=== PATIENT | female | born 1995 | race African-American/Black ===

== ENCOUNTER 2018-09-24 19:41 | Emergency (ER) | payer OTHER, SELFPAY ==
[2018-09-24 20:49] LABS: Absolute Lymphocytes (CBC) 0.8 K/uL (0.7-4.9); Absolute Monocytes 0.5 K/uL (0.1-1.3); Absolute Neutrophil 4.8 K/uL (1.8-8.0); Basophils % 0.5 % (0-1.3); Eosinophils % 0.6 % (0-4.4); Hematocrit 41.2 % (36.0-45.0); Lymphocytes % 13.7 % (15.3-44.8); MPV 9.5 fL (7.6-11.3); Monocytes % 7.7 % (3.3-12.3); RBC Red Blood Cell Count 5.49 M/uL (3.86-4.86)
[2018-09-24] MEDS ORDERED: NA CHLORIDE 0.9% 1,000 ML ONE (20:58)
[2018-09-24] MEDS ORDERED: ONDANSETRON 4 MG/2 ML VIAL ONE (20:58)
[2018-09-24 21:07] LABS: ALT/SGPT 24 U/L (12-78); AST/SGOT 26 U/L (15-37); Albumin 3.4 g/dL (3.4-5.0); Alkaline Phosphatase 92 U/L (45-117); BUN Blood Urea Nitrogen 11 mg/dL (7-18); Bicarbonate 28 mmol/L (21-32); Bilirubin Direct 0.2 mg/dL (0-0.2); Bilirubin Total 0.5 mg/dL (0.2-1.0); Glucose Level 86 mg/dL (74-106); Lipase 75 U/L (73-393); Potassium 4.3 mmol/L (3.5-5.1); Protein, Total 7.9 g/dL (6.4-8.2); Sodium Level 142 mmol/L (136-145)
[2018-09-24 21:12] LABS: Urine Blood NEGATIVE (NEG); Urine Glucose NEGATIVE (NEG); Urine Protein 1+ (NEG); Urine Specific Gravity 1.025 (1.005-1.030); Urine pH 5.5 (5.0-7.0)
--- NOTE | 2018-09-24 21:14 | EDPHYS ---
Physician Documentation [facility] Name: Balwinder Nguyen Age: 23 yrs Sex: Female : 1995 Arrival Date: 09/24/2018 Time: 19:42 Bed 23 Private MD: ED Physician Donaldo Stanley HPI: 09/24 20:43 This 23 yrs old Black Female presents to ER via Ambulatory with complaints of Abdominal kb Pain, Nausea/Vomiting. 20:43 The patient presents with abdominal pain in the upper abdomen. Onset: The kb symptoms/episode began/occurred this morning. The symptoms do not radiate. Associated signs and symptoms: Pertinent positives: nausea and vomiting, Pertinent negatives: constipation, diarrhea, fever. The symptoms are described as constant. Modifying factors: The symptoms are alleviated by nothing, the symptoms are aggravated by nothing. Severity of pain: At its worst the pain was moderate in the emergency department the pain is unchanged. The patient has not experienced similar symptoms in the past. The patient has not recently seen a physician. 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 ak1 Historical: - Allergies: 19:49 No Known Allergies; ak1 - Home Meds: 19:49 None [Active]; ak1 - PMHx: 19:49 None; ak1 - PSHx: 19:49 None; ak1 - Immunization history:: Adult Immunizations unknown. - Social history:: Smoking status: Patient/guardian denies using tobacco. - Ebola Screening: : No symptoms or risks identified at this time. ROS: 20:42 Constitutional: Negative for fever, chills, and weight loss, ENT: Negative for injury, kb pain, and discharge, Neck: Negative for injury, pain, and swelling, Cardiovascular: Negative for chest pain, palpitations, and edema, Respiratory: Negative for shortness of breath, cough, wheezing, and pleuritic chest pain, Back: Negative for injury and pain, : Negative for injury, bleeding, discharge, and swelling, MS/Extremity: Negative for injury and deformity, Skin: Negative for injury, rash, and discoloration, Neuro: Negative for headache, weakness, numbness, tingling, and seizure. 20:42 Abdomen/GI: Positive for abdominal pain, nausea and vomiting, Negative for diarrhea, constipation, abdominal cramps, abdominal distension, anorexia. Exam: 20:42 Constitutional: This is a well developed, well nourished patient who is awake, alert, kb and in no acute distress. Head/Face: Normocephalic, atraumatic. ENT: Nares patent. No nasal discharge, no septal abnormalities noted. Tympanic membranes are normal and external auditory canals are clear. Oropharynx with no redness, swelling, or masses, exudates, or evidence of obstruction, uvula midline. Mucous membranes moist. Neck: Trachea midline, no thyromegaly or masses palpated, and no cervical lymphadenopathy. Supple, full range of motion without nuchal rigidity, or vertebral point tenderness. No Meningismus. Chest/axilla: Normal chest wall appearance and motion. Nontender with no deformity. No lesions are appreciated. Cardiovascular: Regular rate and rhythm with a normal S1 and S2. No gallops, murmurs, or rubs. Normal PMI, no JVD. No pulse deficits. Respiratory: Lungs have equal breath sounds bilaterally, clear to auscultation and percussion. No rales, rhonchi or wheezes noted. No increased work of breathing, no retractions or nasal flaring. Skin: Warm, dry with normal turgor. Normal color with no rashes, no lesions, and no evidence of cellulitis. MS/ Extremity: Pulses equal, no cyanosis. Neurovascular intact. Full, normal range of motion. Neuro: Awake and alert, GCS 15, oriented to person, place, time, and situation. Cranial nerves II-XII grossly intact. Motor strength 5/5 in all extremities. Sensory grossly intact. Cerebellar exam normal. Normal gait. 20:42 Abdomen/GI: Inspection: abdomen appears normal, Bowel sounds: normal, in all quadrants, Palpation: soft, in all quadrants, mild abdominal tenderness, in the epigastric area and right upper quadrant, moderate abdominal tenderness, in the left upper quadrant. Vital Signs: 19:49 BP 107 / 75; Pulse 130; Resp 16; Temp 98; Pulse Ox 98% on R/A; Weight 99.79 kg (R); ak1 Height 5 ft. 7 in. (170.18 cm) (R); Pain 8/10; 20:08 BP 106 / 60; Pulse 98; Resp 17; Pulse Ox 99% ; rr5 21:15 BP 125 / 71; Pulse 90; Resp 18; Pulse Ox 99% ; rr5 22:24 BP 131 / 70; Pulse 99; Resp 17; Pulse Ox 99% ; rr5 19:49 Body Mass Index 34.46 (99.79 kg, 170.18 cm) ak1 MDM: 19:54 Patient medically screened. kb 20:42 Data reviewed: vital signs, nurses notes. Data interpreted: Pulse oximetry: on room air kb is 99 %. Interpretation: normal. 21:10 Counseling: I had a detailed discussion with the patient and/or guardian regarding: the kb historical points, exam findings, and any diagnostic results supporting the discharge/admit diagnosis, lab results, the need for outpatient follow up, a family practitioner, to return to the emergency department if symptoms worsen or persist or if there are any questions or concerns that arise at home. 09/24 20:15 Order name: Basic Metabolic Panel; Complete Time: 21:09 kb 09/24 20:15 Order name: CBC with Diff; Complete Time: 20:52 kb 09/24 20:15 Order name: Hepatic Function; Complete Time: 21:09 kb 09/24 20:15 Order name: Lipase; Complete Time: 21:09 kb 09/24 20:44 Order name: Urine Dipstick--Ancillary (enter results); Complete Time: 21:13 ar5 09/24 20:44 Order name: Urine --Ancillary (enter results); Complete Time: 21:13 ar5 09/24 20:15 Order name: IV Saline Lock; Complete Time: 20:56 kb 09/24 20:15 Order name: Labs collected and sent; Complete Time: 20:57 kb Administered Medications: 20:45 Drug: NS 0.9% 1000 ml Route: IV; Rate: 1000 ml; Site: left antecubital; rr5 22:25 Follow up: Response: No adverse reaction; IV Status: Completed infusion; IV Intake: rr5 1000ml 20:47 Drug: Zofran 4 mg Route: IVP; Site: left antecubital; rr5 22:25 Follow up: Response: No adverse reaction rr5 Disposition: 09/24/18 21:13 Discharged to Home. Impression: Upper abdominal pain, unspecified, Nausea with vomiting, unspecified. - Condition is Stable. - Discharge Instructions: Nausea and Vomiting, Adult, [id number], Abdominal Pain, Adult, [id number]. - Prescriptions for Bentyl 20 mg Oral Tablet - take 1 tablet by ORAL route every 6 hours As needed; 20 tablet. Zofran 4 mg Oral Tablet - take 1 tablet by ORAL route every 6 hours As needed; 20 tablet. - Medication Reconciliation Form, Thank You Letter, Antibiotic Education, Prescription Opioid Use form. - Follow up: Emergency Department; When: As needed; Reason: Worsening of condition. Follow up: Private Physician; When: 2 - 3 days; Reason: Recheck today's complaints, Continuance of care, Re-evaluation by your physician. Signatures: Dispatcher [employer] EDMA Cristal Marquis, HOG RINGER-C HOG RINGER-Mar Rob, RN RN ak1 Parker Payne RN RN rr5 Corrections: (The following items were deleted from the chart) 22:25 21:13 09/24/2018 21:13 Discharged to Home. Impression: Upper abdominal pain, rr5 unspecified; Nausea with vomiting, unspecified. Condition is Stable. Discharge Instructions: Nausea and Vomiting, Adult, Ozcn-hv-Zaur, Abdominal Pain, Adult, [id number]. Prescriptions for Bentyl 20 mg Oral Tablet - take 1 tablet by ORAL route every 6 hours As needed; 20 tablet, Zofran 4 mg Oral Tablet - take 1 tablet by ORAL route every 6 hours As needed; 20 tablet. and Forms are Medication Reconciliation Form, Thank You Letter, Antibiotic Education, Prescription Opioid Use. Follow up: Emergency Department; When: As needed; Reason: Worsening of condition. Follow up: Private Physician; When: 2 - 3 days; Reason: Recheck today's complaints, Continuance of care, Re-evaluation by your physician. kb
--- NOTE | 2018-09-24 21:14 | ER ---
Nurse's Notes [facility] Name: Balwinder Nguyen Age: 23 yrs Sex: Female : 1995 Arrival Date: 09/24/2018 Time: 19:42 Bed 23 Private MD: Diagnosis: Upper abdominal pain, unspecified;Nausea with vomiting, unspecified Presentation: 09/24 19:48 Presenting complaint: Patient states: generalized abd pain since this morning. pt c/o ak1 vomited X2 today. Transition of care: patient was not received from another setting of care. Onset of symptoms was September 24, 2018. Risk Assessment: Do you want to hurt yourself or someone else? Patient reports no desire to harm self or others. Initial Sepsis Screen:. Care prior to arrival: None. 19:48 Method Of Arrival: Ambulatory ak1 19:48 Acuity: EDUARDO 3 ak1 22:24 Initial Sepsis Screen: Does the patient meet any 2 criteria? No. Patient's initial rr5 sepsis screen is negative. Does the patient have a suspected source of infection? No. Patient's initial sepsis screen is negative. Triage Assessment: 19:49 General: Appears in no apparent distress. Behavior is calm, cooperative. Pain: ak1 Complains of pain in abdomen. 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 ak1 Historical: - Allergies: 19:49 No Known Allergies; ak1 - Home Meds: 19:49 None [Active]; ak1 - PMHx: 19:49 None; ak1 - PSHx: 19:49 None; ak1 - Immunization history:: Adult Immunizations unknown. - Social history:: Smoking status: Patient/guardian denies using tobacco. - Ebola Screening: : No symptoms or risks identified at this time. Screenin:07 Abuse screen: Denies threats or abuse. Denies injuries from another. Nutritional rr5 screening: No deficits noted. Tuberculosis screening: No symptoms or risk factors identified. Fall Risk None identified. Total Trevino Fall Scale indicates No Risk (0-24 pts). Assessment: 20:05 General: Appears in no apparent distress. uncomfortable, Behavior is calm, cooperative, rr5 appropriate for age. Pain: Complains of pain in right upper quadrant and left upper quadrant Pain does not radiate. Pain currently is 8 out of 10 on a pain scale. Quality of pain is described as aching, Pain began gradually, Is intermittent. Neuro: Level of Consciousness is awake, alert, obeys commands, Oriented to person, place, time, situation, Appropriate for age. Cardiovascular: Capillary refill < 3 seconds Patient's skin is warm and dry. Respiratory: Airway is patent Respiratory effort is even, unlabored, Respiratory pattern is. GI: Abdomen is round obese, Bowel sounds present X 4 quads. Abd is soft and non tender Reports vomiting. : No signs and/or symptoms were reported regarding the genitourinary system. EENT: No signs and/or symptoms were reported regarding the EENT system. Derm: Skin is intact, Skin temperature is warm. Musculoskeletal: Circulation, motion, and sensation intact. Capillary refill < 3 seconds, Range of motion: intact in all extremities. 20:40 Reassessment: Patient appears in no apparent distress at this time. vomited once large rr5 in amount. 21:35 Reassessment: Patient appears in no apparent distress at this time. Patient is alert, rr5 oriented x 3, equal unlabored respirations, skin warm/dry/pink. awaiting for the IVF to consumed. patient feels relieved. 22:26 Reassessment: Patient appears in no apparent distress at this time. Patient is alert, rr5 oriented x 3, equal unlabored respirations, skin warm/dry/pink. discharge instruction given and explained without complaints made. Patient states feeling better. Patient states symptoms have improved. Vital Signs: 19:49 BP 107 / 75; Pulse 130; Resp 16; Temp 98; Pulse Ox 98% on R/A; Weight 99.79 kg (R); ak1 Height 5 ft. 7 in. (170.18 cm) (R); Pain 8/10; 20:08 BP 106 / 60; Pulse 98; Resp 17; Pulse Ox 99% ; rr5 21:15 BP 125 / 71; Pulse 90; Resp 18; Pulse Ox 99% ; rr5 22:24 BP 131 / 70; Pulse 99; Resp 17; Pulse Ox 99% ; rr5 19:49 Body Mass Index 34.46 (99.79 kg, 170.18 cm) ak1 ED Course: 19:42 Patient arrived in ED. am2 19:45 [facility] kb 19:45 Donaldo Stanley MD is Attending Physician. kb 19:48 Triage completed. ak1 19:49 Arm band placed on Patient placed in an exam room, on a stretcher, Patient notified of ak1 wait time. 19:57 Parker Payne, RN is Primary Nurse. rr5 20:07 Patient has correct armband on for positive identification. Bed in low position. Call rr5 light in reach. Side rails up X 1. Pulse ox on. NIBP on. 20:30 Inserted saline lock: 20 gauge in left antecubital area, using aseptic technique. Blood rr5 collected. 22:23 No provider procedures requiring assistance completed. IV discontinued, intact, rr5 bleeding controlled, No redness/swelling at site. Pressure dressing applied. Administered Medications: 20:45 Drug: NS 0.9% 1000 ml Route: IV; Rate: 1000 ml; Site: left antecubital; rr5 22:25 Follow up: Response: No adverse reaction; IV Status: Completed infusion; IV Intake: rr5 1000ml 20:47 Drug: Zofran 4 mg Route: IVP; Site: left antecubital; rr5 22:25 Follow up: Response: No adverse reaction rr5 Intake: 22:25 IV: 1000ml; Total: 1000ml. rr5 Output: 20:40 Gastric: 1ml (Emesis); Total: 1ml. rr5 Outcome: 21:13 Discharge ordered by . kb 22:23 Discharged to home ambulatory. rr5 22:23 Condition: stable 22:23 Discharge instructions given to patient, Instructed on discharge instructions, follow up and referral plans. medication usage, Demonstrated understanding of instructions, follow-up care, medications, Prescriptions given X 2. 22:25 Patient left the ED. rr5 Signatures: Cristal Marquis, PEANUT CLEANER-C PEANUT CLEANER-CkMar Atkins, RN RN ak1 April Gray am2 Parker aPyne, RN RN rr5 Corrections: (The following items were deleted from the chart) 19:50 19:49 Pulse 130bpm; Resp 16bpm; Pulse Ox 98% RA; Temp 98F; 99.79 kg Reported; Height 5 ak1 ft. 7 in. Reported; BMI: 34.4; Pain 8/10; ak1
== END 2018-09-24 22:25 | disposition home or self-care (01) ==
LOC: ER 19:41
DX: R11.2 Nausea with vomiting, unspecified (principal)
CPT/HCPCS: 36415; 80048; 80076; 81003; 81025; 83690; 85025; 96361; 96374; 99284; J2405; J7030

== ENCOUNTER 2019-02-20 17:31 | Emergency (ER) | payer OTHER ==
--- OUTSIDE RECORDS SUMMARY | 2019-02-20 17:32 | XMS REPORT ---
:1995 [facility] Address [address] [place] [address] Dr. Hart [address] [place] [id number] Care Team Providers Name Role Phone Unavailable Unavailable Unavailable Problems This patient has no known problems. Allergies, Adverse Reactions, Alerts This patient has no known allergies or adverse reactions. Medications This patient has no known medications.
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
--- OUTSIDE RECORDS SUMMARY | 2019-02-20 17:33 | XMS REPORT | Summary of Care ---
:1995 Author Organization [facility] - Health Address [address] [place] [address] Care Team Providers Name Role Phone Nessa [facility] Insurance Hmo Valentino Marti Primary Care Provider Encounter Details Date Type Department Care Team Description 02/11/2019 Orders Only [facility] Doctor Unassigned, No [address] [facility] [place] [address] [address] [place] [address] Allergies No Known Allergiesdocumented as of this encounter (statuses as of 02/11/2019) Medications Medication Sig Dispensed Refills Start Date End Date Status [id number] Take 1 tablet by 30 tablet 7 06/16/2017 Active amanda oil ( mouth daily. She GUMMY) 400 mcg-35 mg may have any brand -25 mg-5 mg covered by her ChewIndications: insurance. Supervision of high risk , antepartum Hospital, Clinic, or Other Ordered Dose Route Frequency Start Date End Date Status Facility Administered Medication medroxyPROGESTERone 150 mg IM [id number] 04/18/2018 03/19/2019 Active (DEPO-PROVERA) injection 150 mgIndications: Encounter for contraceptive management, unspecified type documented as of this encounter (statuses as of 02/11/2019) Active Problems Patient Care Coordination Note IOL scheduled for 06/22/15 7am Problem Noted Date Encounter for contraceptive management, unspecified type 04/04/2018 Class 1 obesity with body mass index (BMI) of 34.0 to 34.9 in adult, 2017 unspecified obesity type, unspecified whether serious comorbidity present Vaginal cyst 01/23/2018 Venereal disease screening 02/27/2015 documented as of this encounter (statuses [...] circumference. 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 documented as of this encounter Last Filed Vital Signs Not on filedocumented in this encounter Plan of Treatment Date Type Specialty Care Team Description 02/11/2019 Initial Visit [facility] Valentino Marti, [employer] [address] [place] [address] [phone] Health Maintenance Due Date Last Done Comments [...] encounter Procedures Procedure Name Priority Date/Time Associated Diagnosis Comments ASSIGNMENT OF BENEFITS Routine 02/11/2019 1:03 PM CDT documented in this encounter Results Not on filedocumented in this encounter Insurance Payer Benefit Plan Subscriber ID Effective Phone Address Type / Group Dates [facility] xxxxxxxxx 2018-Lakeisha [phone] Medicaid WOMEN nt [address] [place] [address] documented as of this encounter Advance Directives Name Relationship Healthcare Agent Communication Relationship Abigail Zafar Mother Primary healthcare agent
[2019-02-20 18:21] LABS: Absolute Lymphocytes (CBC) 2.4 K/uL (0.7-4.9); Basophils % 1.2 % (0-1.3); Hematocrit 37.6 % (36.0-45.0); Lymphocytes % 33.7 % (15.3-44.8); MPV 9.9 fL (7.6-11.3); RBC Red Blood Cell Count 4.92 M/uL (3.86-4.86)
[2019-02-20 18:47] LABS: Urine Blood NEGATIVE (NEG); Urine Glucose NEGATIVE (NEG); Urine Protein NEGATIVE (NEG); Urine Specific Gravity 1.025 (1.005-1.030)
[2019-02-20 19:05] LABS: BUN Blood Urea Nitrogen 7 mg/dL (7-18); Bicarbonate 25 mmol/L (21-32); Glucose Level 76 mg/dL (74-106); HCG, Quantitative 1390 mIU/mL (1-3); Potassium 3.7 mmol/L (3.5-5.1); Sodium Level 144 mmol/L (136-145)
--- NOTE | 2019-02-20 19:34 | EDPHYS ---
Physician Documentation [facility] Name: Balwinder Nguyen Age: 23 yrs Sex: Female : 1995 Arrival Date: 02/20/2019 Time: 17:35 Bed 13 Private MD: ED Physician Imtiaz Power HPI: 02/20 17:54 This 23 yrs old Black Female presents to ER via Wheelchair with complaints of Abdominal kb Pain, 5 wks . 17:54 The patient presents to the emergency department with abdominal pain, of the suprapubic kb area, described as constant. The estimated gestational age is 5 weeks. course: care: at a clinic, Leakage of Fluid: none appreciated, Ultrasound: the patient has not had an ultrasound, Risk/complications: no obvious risks or complications are appreciated. Previous pregnancies: in previous pregnancies patient has had. Associated signs and symptoms: Pertinent positives: abdominal pain, Pertinent negatives: chest pain, diarrhea, dysuria, fever, frequency, nausea, ruptured membranes, seizure, shortness of breath, vaginal bleeding, vaginal discharge, vomiting. The patient has not experienced similar symptoms in the past. The patient has not recently seen a physician. 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 - Social history:: Smoking status: . - Ebola Screening: : Patient denies travel to an Ebola-affected area in the 21 days before illness onset. ROS: 17:54 Constitutional: Negative for fever, chills, and weight loss, ENT: Negative for injury, kb pain, and discharge, Neck: Negative for injury, pain, and swelling, Cardiovascular: Negative for chest pain, palpitations, and edema, Respiratory: Negative for shortness of breath, cough, wheezing, and pleuritic chest pain, Back: Negative for injury and pain, MS/Extremity: Negative for injury and deformity, Skin: Negative for injury, rash, and discoloration, Neuro: Negative for headache, weakness, numbness, tingling, and seizure. 17:54 Abdomen/GI: Positive for abdominal pain. Exam: 17:54 Constitutional: This is a well developed, well nourished patient who is awake, alert, kb and in no acute distress. Head/Face: Normocephalic, atraumatic. ENT: Nares patent. No nasal discharge, no septal abnormalities noted. Tympanic membranes are normal and external auditory canals are clear. Oropharynx with no redness, swelling, or masses, exudates, or evidence of obstruction, uvula midline. Mucous membranes moist. Neck: Trachea midline, no thyromegaly or masses palpated, and no cervical lymphadenopathy. Supple, full range of motion without nuchal rigidity, or vertebral point tenderness. No Meningismus. Chest/axilla: Normal chest wall appearance and motion. Nontender with no deformity. No lesions are appreciated. Cardiovascular: Regular rate and rhythm with a normal S1 and S2. No gallops, murmurs, or rubs. Normal PMI, no JVD. No pulse deficits. Respiratory: Lungs have equal breath sounds bilaterally, clear to auscultation and percussion. No rales, rhonchi or wheezes noted. No increased work of breathing, no retractions or nasal flaring. Back: No spinal tenderness. No costovertebral tenderness. Full range of motion. Skin: Warm, dry with normal turgor. Normal color with no rashes, no lesions, and no evidence of cellulitis. MS/ Extremity: Pulses equal, no cyanosis. Neurovascular intact. Full, normal range of motion. Neuro: Awake and alert, GCS 15, oriented to person, place, time, and situation. Cranial nerves II-XII grossly intact. Motor strength 5/5 in all extremities. Sensory grossly intact. Cerebellar exam normal. Normal gait. 17:54 Abdomen/GI: Inspection: obese Bowel sounds: normal, Palpation: soft, in all quadrants, mild abdominal tenderness, in the suprapubic area, right lower quadrant and left lower quadrant. Vital Signs: 17:45 BP 120 / 80; Pulse 89; Resp 17; Temp 97.9(O); Pulse Ox 100% on R/A; Weight 127.01 kg tw2 (R); Height 5 ft. 7 in. (170.18 cm) (R); Pain 8/10; 18:52 BP 107 / 65; Pulse 78; Resp 18; Pulse Ox 100% on R/A; mg2 19:34 BP 121 / 69; Pulse 79; Resp 16; Pulse Ox 100% on R/A; jb4 17:45 Body Mass Index 43.85 (127.01 kg, 170.18 cm) tw2 MDM: 17:47 Patient medically screened. kb 17:54 Data reviewed: vital signs, nurses notes. Data interpreted: Pulse oximetry: on room air kb is 100 %. Interpretation: normal. 19:32 Counseling: I had a detailed discussion with the patient and/or guardian regarding: the kb historical points, exam findings, and any diagnostic results supporting the discharge/admit diagnosis, lab results, radiology results, the need for outpatient follow up, an OB/Gyne specialist, to return to the emergency department if symptoms worsen or persist or if there are any questions or concerns that arise at home. 02/20 17:47 Order name: Quantitative Hcg; Complete Time: 19:07 kb 02/20 17:47 Order name: Abo/rh Typing; Complete Time: 19:32 kb 02/20 17:47 Order name: Basic Metabolic Panel; Complete Time: 19:07 kb 02/20 17:47 Order name: CBC with Diff; Complete Time: 18:30 kb 02/20 18:20 Order name: Urine Dipstick--Ancillary (enter results); Complete Time: 18:50 em1 02/20 18:21 Order name: Urine --Ancillary (enter results); Complete Time: 18:50 em1 02/20 17:47 Order name: Urine Test (obtain specimen); Complete Time: 18:07 kb 02/20 17:47 Order name: IV Saline Lock; Complete Time: 18:07 kb 02/20 17:47 Order name: Labs collected and sent; Complete Time: 18:07 kb 02/20 17:47 Order name: NPO; Complete Time: 18:07 kb 02/20 17:47 Order name: Urine Dipstick-Ancillary (obtain specimen); Complete Time: 18:19 kb 02/20 18:30 Order name: US Transvaginal Ob kb Administered Medications: No medications were administered Disposition: 02/21 06:59 Co-signature as Attending Physician, Imtiaz Power MD. rn Disposition: 02/20/19 19:34 Discharged to Home. Impression: Threatened . - Condition is Stable. - Discharge Instructions: First Trimester of , Ljot-[id number], Threatened Miscarriage, Jiky-je-Zhni, Pelvic Rest. - Medication Reconciliation Form, Thank You Letter, Antibiotic Education, Prescription Opioid Use form. - Follow up: Emergency Department; When: As needed; Reason: Worsening of condition. Follow up: Private Physician; When: 2 - 3 days; Reason: Recheck today's complaints, Continuance of care, Re-evaluation by your physician. Signatures: Dispatcher [employer] EDSC Cristal Marquis, ADULT NEUROPSYCHOLOGIST-C ADULT NEUROPSYCHOLOGIST-CkImtiaz Martin MD MD rn Daysi Allen RN RN tw2 Juliano Arriola RN RN jb4 Corrections: (The following items were deleted from the chart) 02/20 19:44 19:34 02/20/2019 19:34 Discharged to Home. Impression: Threatened . Condition jb4 is Stable. Forms are Medication Reconciliation Form, Thank You Letter, Antibiotic Education, Prescription Opioid Use. Follow up: Emergency Department; When: As needed; Reason: Worsening of condition. Follow up: Private Physician; When: 2 - 3 days; Reason: Recheck today's complaints, Continuance of care, Re-evaluation by your physician. kb
--- NOTE | 2019-02-20 19:34 | ER ---
Nurse's Notes [facility] Name: Balwinder Nguyen Age: 23 yrs Sex: Female : 1995 Arrival Date: 02/20/2019 Time: 17:35 Bed 13 Private MD: Diagnosis: Threatened Presentation: 02/20 17:44 Presenting complaint: Patient states: i am having lower abdomen pain that started tw2 around 4pm today it has been going on for a couple of days but today it is at its worse,pink tinge of blood noted yesterday when i wiped, but i am not sure about now. Transition of care: patient was not received from another setting of care. Onset of symptoms was February 20, 2019. Risk Assessment: Do you want to hurt yourself or someone else? Patient reports no desire to harm self or others. Initial Sepsis Screen: Does the patient meet any 2 criteria? No. Patient's initial sepsis screen is negative. Does the patient have a suspected source of infection? No. Patient's initial sepsis screen is negative. Care prior to arrival: None. 17:44 Method Of Arrival: Wheelchair tw2 17:44 Acuity: EDUARDO 3 tw2 Triage Assessment: 17:46 General: Appears uncomfortable, obese, well groomed, Behavior is calm, cooperative, tw2 appropriate for age. Pain: Complains of pain in pelvis. GI: Reports lower abdominal pain. : Denies vaginal bleeding. 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 - Social history:: Smoking status: . - Ebola Screening: : Patient denies travel to an Ebola-affected area in the 21 days before illness onset. Screenin:09 Abuse screen: Denies threats or abuse. Denies injuries from another. Nutritional mg2 screening: No deficits noted. Tuberculosis screening: No symptoms or risk factors identified. Fall Risk No IV (0 pts). Assessment: 18:07 General: Appears in no apparent distress. comfortable, Behavior is calm, cooperative. mg2 Pain: Complains of pain in suprapubic area Pain does not radiate. Pain currently is 5 out of 10 on a pain scale. Quality of pain is described as aching, crampy, Pain began gradually, 1 day ago. Is intermittent. Neuro: Level of Consciousness is awake, alert, obeys commands, Oriented to person, place, time, situation. Cardiovascular: Capillary refill < 3 seconds Patient's skin is warm and dry. Respiratory: Airway is patent Respiratory effort is even, unlabored, Respiratory pattern is regular, symmetrical. GI: Bowel sounds present X 4 quads. Abd is soft and non tender X 4 quads. Reports lower abdominal pain. : Reports pain in suprapubic area vaginal bleeding that is spotty, since yesterday. EENT: No signs and/or symptoms were reported regarding the EENT system. Derm: Skin is intact, is healthy with good turgor, Skin is pink, warm \T\ dry. normal. Musculoskeletal: Circulation, motion, and sensation intact. Capillary refill < 3 seconds. 19:05 Reassessment: PT to Ultrasound. jb4 19:42 Reassessment: Patient appears in no apparent distress at this time. Patient and/or jb4 family updated on plan of care and expected duration. Pain level reassessed. Patient is alert, oriented x 3, equal unlabored respirations, skin warm/dry/pink. PT verbalized understanding of d/c and follow up instructions. Ambulated out of ED with steady gait. Vital Signs: 17:45 BP 120 / 80; Pulse 89; Resp 17; Temp 97.9(O); Pulse Ox 100% on R/A; Weight 127.01 kg tw2 (R); Height 5 ft. 7 in. (170.18 cm) (R); Pain 8/10; 18:52 BP 107 / 65; Pulse 78; Resp 18; Pulse Ox 100% on R/A; mg2 19:34 BP 121 / 69; Pulse 79; Resp 16; Pulse Ox 100% on R/A; jb4 17:45 Body Mass Index 43.85 (127.01 kg, 170.18 cm) tw2 ED Course: 17:35 Patient arrived in ED. mr 17:41 Cristal Marquis, [facility] kb 17:41 Imtiaz Power MD is Attending Physician. kb 17:45 Triage completed. tw2 17:45 Arm band placed on. tw2 17:50 Sammy Hogan, RN is Primary Nurse. mg2 18:09 Patient has correct armband on for positive identification. mg2 18:09 No provider procedures requiring assistance completed. Inserted saline lock: 20 gauge mg2 in right antecubital area, using aseptic technique. Blood collected. 19:00 Report given to RISHI Hickey. mg2 19:26 US Transvaginal Ob In Process Unspecified. EDMS 19:34 IV discontinued, intact, bleeding controlled, No redness/swelling at site. Pressure jb4 dressing applied. Administered Medications: No medications were administered Outcome: 19:34 Discharge ordered by MD. kb 19:44 Discharged to home ambulatory. jb4 19:44 Condition: stable 19:44 Discharge instructions given to patient, Instructed on discharge instructions, follow up and referral plans. Demonstrated understanding of instructions, follow-up care. 19:44 Patient left the ED. jb4 Signatures: Dispatcher [employer] EDAZ Cristal Marquis, MANAGER BALANCE-C MANAGER BALANCE-Elif James mr Daysi Allen, RN RN tw2 Juliano Arriola, RN RN jb4 Sammy Hogan, RN RN mg2
--- NOTE | 2019-02-20 19:42 | RAD REPORT ---
EXAM DESCRIPTION: US - Transvaginal OB - 02/20/2019 7:25 pm CLINICAL HISTORY: ABD CRAMPING, COMPARISON: No comparisons FINDINGS: The uterus is normal in size, shape and echotexture. Endometrium is thickened measuring 21 mm. No evidence of a gestational sac. The maternal adnexa and ovaries are within normal limits. Normal Doppler blood flow was demonstrated to both ovaries. Small amount of free fluid is seen in the pelvis. IMPRESSION: Thickened endometrial stripe measuring 21 mm. In the setting of an elevated HCG level, t his would be compatible with a of unknown location. Follow-up pelvic sonography in 7-10 day s and serial HCG levels would be advised.
== END 2019-02-20 19:44 | disposition home or self-care (01) ==
LOC: ER 17:31
DX: O20.0 Threatened abortion (principal); Z3A.01 Less than 8 weeks gestation of pregnancy
CPT/HCPCS: 36415; 76817; 80048; 81003; 81025; 84702; 85025; 86900; 86901; 99283